=== PATIENT | male | born 1940 ===

== ENCOUNTER 2018-03-27 16:59 | Emergency (ER) | payer MEDICARE ==
[2018-03-27 16:59] VITALS: BMI 23.3
[2018-03-27 17:16] VITALS: BP 155/88; PULSE 93; RESP 17; TEMP 98.6; O2SAT 98
--- NOTE | 2018-03-27 17:29 | C.PDOC ---
History Of Present Illness 77 year old male presents to the ED for evaluation of right hamstring discomfort which began 3 days ago. Patient states he caught himself from falling around 3 days ago while at work. Patient reports tension/pain to right hamstring area and has been using Bengay for symptoms. He denies head injury, LOC, extremity numbness/weakness. Time Seen by Provider: 03/27/18 17:24 Chief Complaint (Nursing): Lower Extremity Problem/Injury History Per: Patient History/Exam Limitations: no limitations Onset/Duration Of Symptoms: Days (3) Current Symptoms Are (Timing): Still Present Additional History Per: Patient Past Medical History Reviewed: Historical Data, Nursing Documentation, Vital Signs Vital Signs: Last Vital Signs Temp 98.6 F 03/27/18 17:13 Pulse 93 H 03/27/18 17:13 Resp 17 03/27/18 17:13 BP 155/88 H 03/27/18 17:13 Pulse Ox 98 03/27/18 17:13 - Medical History PMH: Hypothyroidism Surgical History: No Surg Hx Family History: States: Unknown Family Hx - Social History Hx Alcohol Use: No Hx Substance Use: No - Immunization History Hx Tetanus Toxoid Vaccination: No Hx Influenza Vaccination: No Hx Pneumococcal Vaccination: No Review Of Systems Musculoskeletal: Positive for: Other (right hamstring pain ) Neurological: Negative for: Weakness, Numbness Physical Exam - Physical Exam Appears: Non-toxic, No Acute Distress Skin: Normal Color, Warm, Dry Head: Atraumatic, Normacephalic Eye(s): bilateral: Normal Inspection Oral Mucosa: Moist Neck: Supple Chest: Symmetrical, No Deformity, No Tenderness Cardiovascular: Rhythm Regular, No Murmur Respiratory: Normal Breath Sounds, No Rales, No Rhonchi, No Wheezing Extremity: Normal ROM, Tenderness (mild, over right hamstring ), Capillary Refill (less than 2 seconds ), No Deformity, No Swelling Neurological/Psych: Oriented x3, Normal Speech, Normal Cognition ED Course And Treatment O2 Sat by Pulse Oximetry: 98 (on RA ) Pulse Ox Interpretation: Normal Progress Note: Motrin PO given. Medical Decision Making Medical Decision Making: R hamstring strain/pull LOW susp of DVT motrin/Dion Sesay educated. Disposition Doctor Will See Patient In The: Office Counseled Patient/Family Regarding: Studies Performed, Diagnosis - Disposition Referrals: [facility] [Outside] [facility] [Outside] [facility] [Outside] Disposition: HOME/ ROUTINE Disposition Time: 17:28 Condition: GOOD Additional Instructions: Ibuprofeno/advil 400-600 mg cada 6 horas jerilyn necessario Dion Sesay y massage jerilyn quiere Instructions: Lower Extremity Muscle Strain Forms: [employer] (Yi) Print Language: FAROESE - Clinical Impression Clinical Impression: Muscle strain, lower leg - Scribe Statement The provider has reviewed the documentation as recorded by the Scribe (Komal Slade) Provider Attestation: All medical record entries made by the Scribe were at my direction and personally dictated by me. I have reviewed the chart and agree that the record accurately reflects my personal performance of the history, physical exam, medical decision making, and the department course for this patient. I have also personally directed, reviewed, and agree with the discharge instructions and disposition.
== END 2018-03-27 17:34 | disposition home or self-care (01) ==
LOC: C.ER 16:59
DX: S76.811A Strain of other specified muscles, fascia and tendons at thigh level, right thigh, initial encounter (principal); W18.30XA Fall on same level, unspecified, initial encounter; Y92.89 Other specified places as the place of occurrence of the external cause; Y99.0 Civilian activity done for income or pay